=== PATIENT | female | born 1970 | race Hispanic/Latino ===

== ENCOUNTER 2019-08-28 09:11 | Emergency (ER) | payer BC ==
[2019-08-28 11:00] LABS: Urine Blood TRACE (NEG); Urine Glucose NEGATIVE (NEG); Urine Protein NEGATIVE (NEG); Urine Specific Gravity 1.025 (1.005-1.030)
--- NOTE | 2019-08-28 11:08 | ER ---
Nurse's Notes [facility] Name: Lyla Sommer Age: 48 yrs Sex: Female : 1970 Arrival Date: 08/28/2019 Time: 09:14 Bed 7 Private MD: Wilfred Salomon B Diagnosis: Acute pharyngitis Presentation: 08/27 09:39 Chief complaint: Patient states: sent home from work Sunday has body aches, no fever, iw +headache, mild sore throat that has improved, no cough congestion. Coronavirus screen: The patient has NOT traveled to a country currently being monitored by the [facility] within the last 14 days. Proceed with normal triage procedures. The patient has NOT had contact with any known and/or suspected case of coronavirus. Proceed with normal triage procedures. Ebola Screen: Patient negative for fever greater than or equal to 101.5 degrees Fahrenheit, and additional compatible Ebola Virus Disease symptoms Patient denies exposure to infectious person. Patient denies travel to an Ebola-affected area in the 21 days before illness onset. No symptoms or risks identified at this time. Initial Sepsis Screen: Does the patient meet any 2 criteria? No. Patient's initial sepsis screen is negative. Does the patient have a suspected source of infection? No. Patient's initial sepsis screen is negative. Risk Assessment: Do you want to hurt yourself or someone else? Patient reports no desire to harm self or others. 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 - Social history:: Smoking status: Patient denies any tobacco usage or history of. Screenin:24 Abuse screen: Denies threats or abuse. Denies injuries from another. Nutritional ia1 screening: No deficits noted. Tuberculosis screening: No symptoms or risk factors identified. Fall Risk No fall in past 12 months (0 pts). No secondary diagnosis (0 pts). No IV (0 pts). Ambulatory Aid- None/Bed Rest/Nurse Assist (0 pts). Gait- Normal/Bed Rest/Wheelchair (0 pts) Mental Status- Oriented to own ability (0 pts). Total Vicente Fall Scale indicates No Risk (0-24 pts). Assessment: 10:24 General: Appears in no apparent distress. comfortable, Behavior is calm, cooperative, ia1 appropriate for age. Pain: Complains of pain in Body aches. Neuro: Level of Consciousness is awake, alert, obeys commands, Oriented to person, place, time, situation. Cardiovascular: Heart tones S1 S2 present Patient's skin is warm and dry. Respiratory: Airway is patent Breath sounds are clear bilaterally. Derm: Skin is pink, warm \T\ dry. 10:24 EENT: Throat is reddened on left. ia1 Vital Signs: 09:39 BP 116 / 74; Pulse 62; Resp 16; Temp 97.9; Pulse Ox 100% on R/A; Weight 79.38 kg; iw Height 5 ft. 5 in. (165.10 cm); Pain 7/10; 11:30 BP 115 / 73; Pulse 63; Resp 16 S; Pulse Ox 100% on R/A; jl7 09:39 Body Mass Index 29.12 (79.38 kg, 165.10 cm) iw ED Course: 09:14 Patient arrived in ED. mr 09:14 Wilfred Salomon MD is Private Physician. mr 09:42 Triage completed. iw 09:43 Arm band placed on. iw 09:48 [facility] jmm 09:48 Mekhi Cloud MD is Attending Physician. jmm 10:00 Rosalio Shah, RADHA is Primary Nurse. jl7 10:00 Flu and/or RSV swab sent to lab. Strep swab sent to lab. jl7 10:24 Patient has correct armband on for positive identification. Bed in low position. Call ia1 light in reach. Side rails up X 1. 11:07 Wilfred Salomon MD is Referral Physician. [facility] 11:50 No provider procedures requiring assistance completed. jl7 11:51 Patient did not have IV access during this emergency room visit. jl7 Administered Medications: 11:31 Drug: Decadron 10 mg Route: IM; Site: left deltoid; jl7 11:50 Follow up: Response: No adverse reaction jl7 Outcome: 11:07 Discharge ordered by MD. rajput 11:48 Attestation : I agree with everything documented by EMMETT Cesar Student Nurse. jl7 11:50 Discharged to home ambulatory. jl7 11:50 Condition: stable 11:50 Discharge instructions given to patient, Instructed on discharge instructions, follow up and referral plans. medication usage, Demonstrated understanding of instructions, follow-up care, medications, Prescriptions given X 1. 11:51 Patient left the ED. jl7 Signatures: Shaheed Colindres PA PA jmm Rivera, Pooja mr Gillian Coronel, RN RN Rosalio Davis RN RN Tali Martinez ia1 Corrections: (The following items were deleted from the chart) 10:29 10:24 Respiratory: Airway is patent Breath sounds are clear bilaterally. ia1 ia1
--- NOTE | 2019-08-28 11:08 | EDPHYS ---
Physician Documentation [facility] Name: Lyla Sommer Age: 48 yrs Sex: Female : 1970 Arrival Date: 08/28/2019 Time: 09:14 Bed 7 Private MD: Wilfred Salomon B ED Physician Mekhi Cloud HPI: 08/27 10:18 This 48 yrs old Female presents to ER via Ambulatory with complaints of body jmm aches, sore throat. 10:18 The patient presents with sore throat. Onset: The symptoms/episode began/occurred jmm gradually, 3 day(s) ago. Modifying factors: The symptoms are alleviated by nothing, the symptoms are aggravated by nothing. This is a 48 year old female with a history of migraines that presents to the ED with complaints of sore throat, body aches beginning 3 days ago. Patient denies known fever. Patient states she recently returned from [place] and was advised to go to the ED with further evaluation. Denies cough, congestion, shortness of breath. . 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 - Social history:: Smoking status: Patient denies any tobacco usage or history of. ROS: 10:18 Constitutional: Negative for fever, chills, and weight loss, Cardiovascular: Negative jmm for chest pain, palpitations, and edema, Respiratory: Negative for shortness of breath, cough, wheezing, and pleuritic chest pain. 10:18 Constitutional: Positive for body aches. 10:18 ENT: Positive for sore throat. 10:18 Neuro: Positive for headache. 10:18 All other systems are negative. Exam: 10:18 Constitutional: This is a well developed, well nourished patient who is awake, alert, jmm and in no acute distress. Head/Face: atraumatic. Eyes: EOMI, no conjunctival erythema appreciated 10:18 Neck: Trachea midline, Supple Chest/axilla: Normal chest wall appearance and motion. Cardiovascular: Regular rate and rhythm. No edema appreciated Respiratory: Normal respirations, no respiratory distress appreciated Abdomen/GI: Non distended, soft Back: Normal ROM Skin: General appearance color normal MS/ Extremity: Moves all extremities, no obvious deformities appreciated, no edema noted to the lower extremities Neuro: Awake and alert, normal gait Psych: Behavior is normal, Mood is normal, Patient is cooperative and pleasant 10:18 ENT: Posterior pharynx: erythema, that is moderate. Vital Signs: 09:39 BP 116 / 74; Pulse 62; Resp 16; Temp 97.9; Pulse Ox 100% on R/A; Weight 79.38 kg; iw Height 5 ft. 5 in. (165.10 cm); Pain 7/10; 11:30 BP 115 / 73; Pulse 63; Resp 16 S; Pulse Ox 100% on R/A; jl7 09:39 Body Mass Index 29.12 (79.38 kg, 165.10 cm) iw MDM: 09:57 Patient medically screened. [facility] 11:05 Data reviewed: vital signs, nurses notes. [facility] 11:06 Data reviewed: lab test result(s). Counseling: I had a detailed discussion with the [facility] patient and/or guardian regarding: the historical points, exam findings, and any diagnostic results supporting the discharge/admit diagnosis, lab results, the need for outpatient follow up, to return to the emergency department if symptoms worsen or persist or if there are any questions or concerns that arise at home. ED course: Patient is alert and non toxic in appearance in the ED. No symptoms involving lower resp tract. I do not suspect COVID. Patient advised to return to the ED if symptoms worsen. Patient understood and agrees with the plan of care. . 03 09:57 Order name: Flu; Complete Time: 10:43 [facility] 08/27 09:57 Order name: Strep; Complete Time: 10:43 [facility] 08/27 09:57 Order name: Urine Dipstick-Ancillary (obtain specimen); Complete Time: 10:26 [facility] 08/27 10:26 Order name: Urine Dipstick--Ancillary (enter results); Complete Time: 11:37 1 08/27 10:32 Order name: Throat Culture EDMS Administered Medications: 11:31 Drug: Decadron 10 mg Route: IM; Site: left deltoid; jl7 11:50 Follow up: Response: No adverse reaction jl7 Disposition: 17:14 Co-signature as Attending Physician, Mekhi Cloud MD I agree with the assessment and kdr plan of care. Disposition: 08/28/19 11:07 Discharged to Home. Impression: Acute pharyngitis. - Condition is Stable. - Discharge Instructions: Pharyngitis. - Prescriptions for Augmentin 875- 125 mg Oral Tablet - take 1 tablet by ORAL route every 12 hours for 10 days; 20 tablet. - Medication Reconciliation Form, Thank You Letter, Antibiotic Education, Prescription Opioid Use, Work release form form. - Follow up: Wilfred Salomon MD; When: 1 - 2 days; Reason: Recheck today's complaints, Continuance of care, Re-evaluation by your physician. Signatures: Dispatcher [employer] EDMS Mekhi Cloud MD MD kdr Mickail, Joel, PA PA jmm Williams, Irene, RADHA RN iw Rosalio Shah RN RN jl7 Corrections: (The following items were deleted from the chart) 11:51 11:07 08/28/2019 11:07 Discharged to Home. Impression: Acute pharyngitis. Condition is jl7 Stable. Forms are Medication Reconciliation Form, Thank You Letter, Antibiotic Education, Prescription Opioid Use. Follow up: Wilfred Salomon; When: 1 - 2 days; Reason: Recheck today's complaints, Continuance of care, Re-evaluation by your physician. regulo
[2019-08-28] MEDS ORDERED: dexAMETHasone 10 MG/ML VIAL ONE (11:33)
[2019-08-28 12:00] VITALS: TEMP 97.9; O2SAT 100
[2019-08-28 12:01] VITALS: BP 115/73
== END 2019-08-28 11:51 | disposition home or self-care (01) ==
LOC: ER 09:11
DX: J02.9 Acute pharyngitis, unspecified (principal)
CPT/HCPCS: 87070; 87081; 81003; 87804 ×2; 96372; 99283; J1100